=== PATIENT | female | born 1930 | race Caucasian/White ===

== ENCOUNTER 2018-04-06 07:15 | Day surgery (SDC) | payer OTHER ==
[2018-04-06] MEDS ORDERED: ETOMIDATE 20 MG/10 ML AMPUL IVPUSH ONE (08:05)
[2018-04-06 08:14] VITALS: BMI 27.3
[2018-04-06 09:42] VITALS: TEMP 97.6
[2018-04-06 10:55] VITALS: BP 131/66; PULSE 62
--- NOTE | 2018-04-06 12:20 | ECHO ---
Name: MANUEL, DONALD Exam:Transesophageal Echocardiogram Study Date: 04/06/2018 08:54 AM Age: 87 yrs Reason For Study: ATRIAL FIBRILLATION/ CARDIOVERSION Height: 60 in Weight: 140 lb BSA: 1.6 m2 Procedure: A 2D transesophageal echocardiogram with Doppler and color flow Doppler was performed. Informed conse nt for Transesophageal Echocardiogram, and use of a contrast agent as needed, was obtained prior to the proc edure. The patient was brought to the endoscopy suite in a fasting state. An intravenous line was placed. A topical anesthetic agent was used for oropharangeal anesthesia. A bite block was inserted. IV concious sedati on was administered using propafol. The transesophageal probe was passed without difficulty. The usual views were obtained; basal, mid-esophageal, transgastric and aortic views. The patient's vital signs, including blood pressure, heart rate, pulse oximetry and cardiac rhythm were monitored throughout the procedure and r emained stable. The patient tolerated the procedure well without evidence of orophangeal or esophageal trauma . Contrast injection with agitated saline was performed. There were no complications. The patient was i n atrial fibrillation with controlled ventricular rate during the exam. Left Ventricle The left ventricle is grossly normal size. Left ventricular systolic function is grossly normal. Right Ventricle The right ventricular systolic function is grossly normal. Atria Spontaneous contrast in LA. Spontaneous contrast in left atrial appendage. There is dense smoke in th e left atrial appendage with low velocity within the appendage. No obvious left atrial appendage thrombus wa s visualized but it could not be entirely ruled out. There is suggestion of a small patent foramen oval e based on color flow doppler but was not seen on agitated saline injection. Mitral Valve There is mild mitral annular calcification. There is mild mitral valve thickening. There is mild to m oderate mitral regurgitation. Tricuspid Valve The tricuspid valve is normal. There is trace tricuspid regurgitation. Aortic Valve There is mild aortic sclerosis.;. The aortic valve opens well. The aortic valve is trileaflet. No aor tic regurgitation is present. Pulmonic Valve The pulmonic valve is not well visualized. The pulmonic valve is not well seen, but is grossly normal . There is no pulmonic valvular regurgitation. 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 The aortic root is normal size. Interpretation Summary Left ventricular systolic function is grossly normal. The right ventricular systolic function is grossly normal. Spontaneous contrast in LA. There is dense smoke in the left atrial appendage with low velocity within the appendage. No obvious left atrial appendage thrombus was visualized but it could not be entirely ruled out. There is suggestion of a small patent foramen ovale based on color flow doppler but was not seen on a gitated saline injection. There is mild mitral annular calcification. There is mild to moderate mitral regurgitation. There is trace tricuspid regurgitation. There is mild aortic sclerosis.; The aortic valve is trileaflet. The aortic valve opens well. Moderate to severe non-mobile atheroma visualized in the ascending aorta, aortic arch, and proximal d escending aorta. MD Gus Grijalva 04/06/2018 12:19 PM
== END 2018-04-06 10:25 | disposition home or self-care (01) ==
LOC: JASU-SURG 07:15
PROVIDERS: ATTEND Internal Medicine Cardiovascular Disease
PROC: B246ZZ4 Ultrasonography of Right and Left Heart, Transesophageal (ICD-10-PCS; principal; 2018-04-06 08:15)
DX: I48.91 Unspecified atrial fibrillation (principal)
CPT/HCPCS: 93312; 93325